=== PATIENT | female | born 1965 | race Caucasian/White ===

== ENCOUNTER 2023-08-13 13:55 | Outpatient (OUT) | payer OTHER, SELFPAY ==
--- NOTE | 2023-08-13 | ECG_ITS ---
[facility] Test Date: 2023-08-13 Pat Name: MIRIAM DHILLON Department: Room: - Gender: Female [employer]: : 1965 Requested By: [id number] Order Number: [id number] Reading MD: RAMAKRISHNA PACHECO Measurements Intervals [place] Rate: 71 P: 55 TN: 134 QRS: 68 QRSD: 82 T: 59 QT: 392 QTc: 426 Interpretive Statements SINUS RHYTHM No previous ECG available for comparison Electronically Signed On 08-14-2023 7:06:06 EDT by RAMAKRISHNA PACHECO
--- NOTE | 2023-08-13 14:47 | CA_ITS ---
Patient: MIRIAM DHILLON Exam Date: 08/13/2023 : 1965 Gender:F Ordering : KADIE PACHECO Admission #: [id number] Family : Order #: [id number] CLICK HERE TO VIEW EXAM ECHOCARDIOGRAM REPORT PROCEDURE: CA ECHO DOPPLER COMPLETE INDICATIONS: Shortness of breath COMPARISON: None. DESCRIPTION: COMPLETE ECHOCARDIOGRAM Real-time transthoracic echocardiography with 2D, M-mode, spectral and color flow Doppler performed. QUALITY: Technical quality was good. LEFT VENTRICLE: Normal chamber size. Normal left ventricular wall thickness. LV EF: Global left ventricular systolic function is normal. Visual estimation of left ventricular ejection fraction is 60-65%. No wall motion abnormalities. DIASTOLIC: Normal diastolic function. ATRIAL SEPTUM: Inadequately seen. LEFT ATRIUM: Normal chamber size. RIGHT ATRIUM: Normal chamber size. RIGHT VENTRICLE: Normal chamber size. Normal right ventricular systolic function. TRICUSPID VALVE: Normal mobility and thickness. No stenosis with trivial regurgitation. No evidence of pulmonary hypertension. RVSP 27mmHg MITRAL VALVE: Normal mobility and thickness. No evidence of mitral valve stenosis. There is no mitral annular calcification. Trivial mitral regurgitation. AORTIC VALVE: Normal trileaflet appearance. No visible sclerosis. Normal leaflet mobility. No evidence of aortic valve stenosis. No aortic regurgitation. AORTIC ROOT: Normal diameter and appearance. PULMONIC VALVE: Normal thickness and mobility. No stenosis. Trivial regurgitation. PERICARDIUM: No evidence of pericardial effusion. IVC: Collapses with inspirations. Normal size. CONCLUSION: 1. Global left ventricular systolic function is normal; visually estimated ejection fraction 60 to 65% 2. Normal diastolic function 3. Right ventricle is normal in size and systolic function 4. No significant valvular abnormalities Adult Echocardiography Procedure Report Left Ventricle LVEDD (3.7 - 5.6 cm): 4.23 cm LVESD (2.2 - 4.0 cm): 2.76 cm LVIVS thickness (0.6 - 1.2 cm): 0.81 cm LVPW thickness (0.5 - 1.0 cm): 0.64 cm e': 0.13 m/s E - e': 5.84 LVOT Max Gradient: 3.21 mm[Hg] LVOT Area (cm2): 0.90 m/s Peak Velocity (LVOT): 0.90 m/s Mean Velocity (LVOT): 0.56 m/s LVOT Diameter 1.95 cm Left Ventricular Ejection Fraction: 70.86 % Left Atrium LA Volume Index (2D A2C): 31.10 ml/m2 Left Atrium Systolic Dimension: 3.38 cm Mitral Valve MV E to A Ratio: 0.98 Mitral Valve A-Wave Peak Velocity: 0.79 m/s Mitral Valve E-Wave Peak Velocity: 0.77 m/s Right Ventricle RV Internal Diastolic Dimension: 2.70 cm Aorta AO Root Diam: 2.59 cm Ascending Ao Diam: 2.61 cm Aortic Valve AoV Area (Peak Steve): 2.31 cm2, 2.24 cm2 AoV Area (VTI): 2.07 cm2, 1.97 cm2 Peak Velocity(Antegrade Flow): 1.19 m/s, 1.12 m/s Peak Gradient(Antegrade Flow): 5.69 mm[Hg], 5.02 mm[Hg] Mean Velocity(Antegrade Flow): 0.78 m/s, 0.80 m/s Mean Gradient(Antegrade Flow): 2.81 mm[Hg], 2.79 mm[Hg] Velocity Time Integral: 27.63 cm, 24.93 cm Tricuspid Valve Peak Velocity (Regurgitant Flow): 2.37 m/s, 2.41 m/s, 2.46 m/s Pulmonic Valve Mean Gradient: 1.88 mm[Hg], 2.01 mm[Hg] Mean Velocity: 0.64 m/s, 0.67 m/s Peak Velocity: 0.88 m/s Peak Gradient: 3.09 mm[Hg], 3.09 mm[Hg] Right Atrium Right Atrium Systolic Pressure: 25.81 ml, 25.81 ml Dictated by: Mohsen Veliz M.D. on 08/14/2023 at 16:57 Approved by: Mohsen Veliz M.D. on 08/14/2023 at 16:59
== END 2023-08-13 13:56 | disposition home or self-care (01) ==
LOC: CARD 13:56
DX: R06.02 Shortness of breath (principal)
CPT/HCPCS: 93005; 93306